=== PATIENT | male | born 2000 | race Hispanic/Latino ===

== ENCOUNTER 2018-07-13 05:47 | Emergency (ER) | payer SELFPAY | END 2018-07-13 06:44 | disposition home or self-care (01) | LOC: M ED 05:47 | DX: H60.311 Diffuse otitis externa, right ear (principal) | CPT/HCPCS: 99282 ==

== ENCOUNTER 2022-08-11 09:00 | Emergency (ER) | payer SELFPAY ==
[~2022-08-11] VITALS: Ht 182.9 cm; Wt 87.2 kg
[~2022-08-11 09:00] MED LIST: AMOX500T PO; CIPR7.5D5 OTIC
[2022-08-11 09:01] VITALS: BP 123/58
[2022-08-11] MEDS ORDERED: ABRE10CR TOP (09:18)
== END 2022-08-11 09:30 | disposition home or self-care (01) ==
LOC: M ED 09:00
DX: B00.1 Herpesviral vesicular dermatitis (principal); Z79.899 Other long term (current) drug therapy

== ENCOUNTER 2025-05-21 18:08 | Emergency (ER) | payer OTHER ==
[~2025-05-21] VITALS: Ht 182.9 cm; Wt 87.0 kg
[~2025-05-21 18:08] MED LIST changes: +ABRE10CR TOP
[2025-05-21] MEDS ORDERED: CETI10CH PO (20:36)
[2025-05-21] MEDS ORDERED: CIPRHCOTIC OTIC (20:36)
[2025-05-21] MEDS: CIPROFLOXACIN HC OTIC SUSPENSION AS ONE (20:49)
[2025-05-21 20:52] VITALS: BP 132/60; TEMP 97.7; O2SAT 100
== END 2025-05-21 21:03 | disposition home or self-care (01) ==
LOC: M ED 18:08
DX: H60.92 Unspecified otitis externa, left ear (principal); Z79.2 Long term (current) use of antibiotics; Z79.899 Other long term (current) drug therapy

== ENCOUNTER → 2025-08-13 | Outpatient (REF) | payer OTHER, MEDICAID ==
[~2025-08-13] MED LIST changes: +CETI10CH PO; +CIPRHCOTIC OTIC
[2025-08-13 17:33] LABS: CHOLESTEROL LEVEL 185 MG/DL (<200); CHOLESTEROL RISK RATIO 4.63 (<5); LDL CHOLESTEROL 116.3 MG/DL (<100); NON-HDL-C 145.1 MG/DL; TRIGLYCERIDES LEVEL 144 MG/DL (<150)
[2025-08-13 17:38] LABS: TOTAL 25(OH) VITAMIN D 25.0 NG/ML (20.0-100.0)
[2025-08-13 17:39] LABS: ESTIMATED AVERAGE GLUCOSE 94.0 MG/DL (60-110)
[2025-08-13 18:02] LABS: HIV 1&2 SCREEN NEGATIVE (NEGATIVE)
[2025-08-13 18:10] LABS: HEPATITIS C VIRUS ABY INDEX 0.04 INDEX (<0.8)
== END ==
LOC: M LAB REF 16:19
PROVIDERS: ATTEND Physician Assistant
DX: Z11.9 Encounter for screening for infectious and parasitic diseases, unspecified (principal); E55.9 Vitamin D deficiency, unspecified; E78.5 Hyperlipidemia, unspecified